=== PATIENT | male | born 1970 | race Caucasian/White ===

== ENCOUNTER 2016-11-15 12:28 | Emergency (ER) | payer OTHER ==
[2016-11-15 12:34] VITALS: BP 155/102; BMI 35.9
--- NOTE | 2016-11-15 13:24 | DR.GENAD ---
HPI - PCP Primary Care Physician: NFD - Complaint/Symptoms Chief Complaint Doctors Comments: Patient admits to nausea w/o vomiting or diarrhea. Crampy stomach pain. History of H pylori two months ago, took medication. Chief Complaint:: PT. STATED THAT HE HAS A STOMACH BUG SINCE MONDAY MORNING. N/D - Source History Provided: Patient - Mode of Arrival Mode of Arrival: Ambulatory - Timing Onset of Chief Complaint: 11/13/16 PMH - PMH Past Medical History: Yes Past Medical History: COPD, Hypertension, [place] Past Surgical History: Yes Surgical History: Ortho Surgery - Family History History of Family Medical Conditions: No - Social History Does patient currently use any type of tobacco product: Yes Have you used tobacco products in the last 12 months: Yes Type of Tobacco Use: Cigarettes Does any household member use tobacco: No Alcohol Use: None Do you use any recreational Drugs:: No Lives With: Family Lives Where: Home - infectious screening In the last 2 months have you had wt loss of >10#?: NO Have you had fever, night sweats or hemotysis?: No Have you traveled outside the country in the last 6 months?: No Isolation: Standard ROS - Review of Systems Constitutional: No Symptoms Reported Eyes: No Symptoms Reported ENTM: No Symptoms Reported Respiratoy: No Symptoms Reported Cardiovascular: No Symptoms Reported Gastrointestinal/Abdominal: Nausea Genitourinary: No Symptoms Reported Neurological: No Symptoms Reported Musculoskeletal: No Symptoms Reported Integumentary: No Symptoms Reported Hematologic/Lymphatic: No Symptoms Reported Endocrine: No Symptoms Reported Psychiatric: No Symptoms Reported All Other Systems: Reviewed and Negative PE - Vital Signs Vitals: Temperature 98.3 F Pulse Rate 79 Respiratory Rate 18 Blood Pressure 155/102 O2 Sat by Pulse Oximetry 98 - General Limitations: No Limitations General Appearance: Alert, In No Apparent Distress - Head Head Exam: Normal Inspection, Atraumatic - Eyes Eye exam: Normal Appearance, PERRL, EOMI - ENT ENT Exam: Normal Exam External Ear Exam: Normal External Inspection TM/Canal Exam: Bilateral Normal Nose Exam: Normal Nose Exam Mouth Exam: Normal Inspection - Neck Neck Exam: Normal Inspection - Chest Chest Inspection: Normal Inspection - Respiratory Respiratory Exam: Normal Lung Sounds Bilat Respiratory Exam: Bilateral Clear to Auscultation - Cardiovascular Cardiovascular Exam: Regular Rate - Abdominal Exam Abdominal Exam: Normal Inspection, Hyperactive Bowel Sounds Abdominal Tenderness: Mild - Extremities Extremities Exam: Normal Inspection, Full ROM - Back Back Exam: Normal Inspection, Full ROM - Neurologic Neurological Exam: Alert, Oriented X3, CN II-XII Intact - Psychiatric Psychiatric Exam: Normal Affect - Skin Skin Exam: Warm, Dry, Intact Course - Reevaluation 1st: Improved ROR - Labs Reviewed Result Diagrams: 11/15/16 14:02 11/15/16 14:02 Laboratory: WBC 7.2 X10^3/uL (3.6-10.0) 11/15/16 14:02 RBC 4.75 X10^6/uL (4.7-6.0) 11/15/16 14:02 Hgb 14.6 g/dL (13.5-18.0) 11/15/16 14:02 Hct 43.1 % (42.0-54.0) 11/15/16 14:02 MCV 90.8 fL (80.0-100.0) 11/15/16 14:02 MCH 30.8 pg (27.0-34.0) 11/15/16 14:02 MCHC 33.9 g/dL (33.0-35.0) 11/15/16 14:02 RDW 12.9 % (11.6-16.5) 11/15/16 14:02 Plt Count 249 X10^3/uL (150.0-450.0) 11/15/16 14:02 MPV 8.0 fL (7.4-11.0) 11/15/16 14:02 Neut % 68.8 % (42.0-75.0) 11/15/16 14:02 Lymph % 20.4 % (21.0-51.0) L 11/15/16 14:02 [place] % 8.5 % (0.0-13.0) 11/15/16 14:02 Eos % 1.6 % (0.9-2.9) 11/15/16 14:02 Baso % 0.7 % (0.2-1.0) 11/15/16 14:02 Neut # 5.0 x10^3/uL (2.2-4.8) H 11/15/16 14:02 Lymph # 1.5 X10^3/uL (1.3-2.9) 11/15/16 14:02 [place] # 0.6 x10^3/uL (0.3-0.8) 11/15/16 14:02 Eos # 0.1 x10^3/uL (0.0-0.2) 11/15/16 14:02 Baso # 0.1 X10^3/uL (0.0-0.1) 11/15/16 14:02 Absolute Nucleated RBC 0.1 /100WBC 11/15/16 14:02 Sodium 139 mmol/L (136-145) 11/15/16 14:02 Corrected Sodium TNP 11/15/16 14:02 Potassium 4.5 mmol/L (3.5-5.1) 11/15/16 14:02 Chloride 102 mmol/L (98-107) 11/15/16 14:02 Carbon Dioxide 28.3 mmol/L (21-32) 11/15/16 14:02 BUN 15 mg/dL (7-18) 11/15/16 14:02 Creatinine 1.16 mg/dL (0.70-1.30) 11/15/16 14:02 Est GFR (MDRD) Af Amer > 60 (>60) 11/15/16 14:02 Est GFR (MDRD) Non-Af > 60 (>60) 11/15/16 14:02 Glucose 89 mg/dL (65-99) 11/15/16 14:02 Calcium 8.7 mg/dL (8.5-10.1) 11/15/16 14:02 Corrected Calcium TNP 11/15/16 14:02 Total Bilirubin 0.40 mg/dL (0.2-1.0) 11/15/16 14:02 AST 21 Units/L (15-37) 11/15/16 14:02 ALT 32 Units/L (12-78) 11/15/16 14:02 Alkaline Phosphatase 71 Units/L (46-116) 11/15/16 14:02 Total Protein 7.9 g/dL (6.4-8.2) 11/15/16 14:02 Albumin 4.0 g/dL (3.4-5.0) 11/15/16 14:02 Globulin 3.9 g/dL (2.5-4.5) 11/15/16 14:02 Albumin/Globulin Ratio 1.0 Ratio (1.1-2.1) L 11/15/16 14:02 Amylase 67 Units/L (25-115) 11/15/16 14:02 Lipase 170 Units/L (73-393) 11/15/16 14:02 Specimen Type Clean catch urine 11/15/16 13:26 Urine Color Yellow (YELLOW) 11/15/16 13:26 Urine Appearance Clear (CLEAR) 11/15/16 13:26 Urine pH 6.0 (5.0 - 8.0) 11/15/16 13:26 Ur Specific [place] 1.010 (1.000-1.030) 11/15/16 13:26 Urine Protein Negative (NEGATIVE) 11/15/16 13:26 Urine Glucose (UA) Negative (NEGATIVE) 11/15/16 13:26 Urine Ketones Negative (NEGATIVE) 11/15/16 13:26 Urine Occult Blood Negative (NEGATIVE) 11/15/16 13:26 Urine Nitrite Negative (NEGATIVE) 11/15/16 13:26 Urine Bilirubin Negative (NEGATIVE) 11/15/16 13:26 Urine Urobilinogen 1+ (NORMAL) 11/15/16 13:26 Ur Leukocyte Esterase 1+ (NEGATIVE) 11/15/16 13:26 Urine RBC 0-3 /HPF (NEGATIVE) 11/15/16 13:26 Urine WBC 0-3 /HPF (NEGATIVE) 11/15/16 13:26 Ur Squamous Epith Cells Rare /HPF (NEGATIVE) 11/15/16 13:26 Urine Bacteria Negative /HPF (NEGATIVE) 11/15/16 13:26 Ur Culture Indicated? No/not indicated 11/15/16 13:26 - Diagnosis Discharge Problem: Nausea Abdominal pain Qualifiers: Abdominal location: generalized Qualified Code(s): R10.84 - Generalized abdominal pain - Discharge Plan Condition: Stable - Follow ups/Referrals Follow ups/Referrals: NFD,None [Primary Care Provider] - 3 days - Instructions
[2016-11-15] MEDS ORDERED: ZOFRAN TAB 4 MG PO PRN (13:28)
[2016-11-15] MEDS ORDERED: BENTYL I.M. INJ 10 MG IM ONE ×2 (13:29→13:38)
[2016-11-15] MEDS ORDERED: ZOFRAN TAB 4 MG ONE (13:37)
[2016-11-15 13:43] LABS: BILIRUBIN,URINE NEGATIVE (NEGATIVE); BLOOD/HEMOGLOBIN,URINE NEGATIVE (NEGATIVE); GLUCOSE, URINE NEGATIVE (NEGATIVE); KETONES,URINE NEGATIVE (NEGATIVE); LEUKOCYTE ESTERASE ,URINE 1+ (NEGATIVE); NITRITES,URINE NEGATIVE (NEGATIVE); PROTEIN,URINE NEGATIVE (NEGATIVE); UROBILINOGEN,URINE 1+ (NORMAL)
[2016-11-15 14:01] LABS: APPEARANCE,URINE CLEAR (CLEAR); BACTERIA,URINE NEGATIVE /HPF (NEGATIVE); COLOR,URINE YELLOW (YELLOW); RBC,URINE 0-3 /HPF (NEGATIVE); SQUAMOUS EPITHELIAL CELL,UR RARE /HPF (NEGATIVE)
[2016-11-15 14:14] LABS: BASOPHILS # (AUTO) 0.1 X10^3/uL (0.0-0.1); BASOPHILS % (AUTO) 0.7 % (0.2-1.0); EOSINOPHILS # (AUTO) 0.1 x10^3/uL (0.0-0.2); EOSINOPHILS % (AUTO) 1.6 % (0.9-2.9); HEMATOCRIT 43.1 % (42.0-54.0); HEMOGLOBIN 14.6 g/dL (13.5-18.0); LYMPHOCYTES # (AUTO) 1.5 X10^3/uL (1.3-2.9); LYMPHOCYTES % (AUTO) 20.4 % (21.0-51.0); MEAN CORPUSCULAR HEMOGLOBIN 30.8 pg (27.0-34.0); MEAN CORPUSCULAR HGB CONC 33.9 g/dL (33.0-35.0); MEAN CORPUSCULAR VOLUME 90.8 fL (80.0-100.0); MONOCYTES # (AUTO) 0.6 x10^3/uL (0.3-0.8); MONOCYTES % (AUTO) 8.5 % (0.0-13.0); NEUTROPHILS % (AUTO) 68.8 % (42.0-75.0); PLATELET COUNT 249 X10^3/uL (150.0-450.0); RED BLOOD COUNT 4.75 X10^6/uL (4.7-6.0); RED CELL DISTRIBUTION WIDTH 12.9 % (11.6-16.5); WHITE BLOOD COUNT 7.2 X10^3/uL (3.6-10.0)
[2016-11-15 14:26] LABS: ALANINE AMINOTRANSFERASE 32 Units/L (12-78); ALKALINE PHOSPHATASE 71 Units/L (46-116); AMYLASE 67 Units/L (25-115); ASPARTATE AMINO TRANSFERASE 21 Units/L (15-37); BLOOD UREA NITROGEN 15 mg/dL (7-18); CALCIUM 8.7 mg/dL (8.5-10.1); CARBON DIOXIDE 28.3 mmol/L (21-32); CHLORIDE 102 mmol/L (98-107); CREATININE 1.16 mg/dL (0.70-1.30); GLUCOSE 89 mg/dL (65-99); LIPASE 170 Units/L (73-393); SODIUM 139 mmol/L (136-145); TOTAL PROTEIN 7.9 g/dL (6.4-8.2); eGFR BLACK RACES > 60 (>60); eGFR NON BLACK RACES > 60 (>60)
--- NOTE | 2016-11-15 15:38 | RAD ---
HISTORY: Abdominal Pain Study: Frontal view of the chest, flat and upright views of the abdomen Comparison: None. Findings: Cardiomediastinal silhouette is normal in size. No focal consolidations, pleural effusions or pneumo thorax. Osseous structures are without acute abnormality. Flat and upright views of the abdomen demonstrates a normal bowel gas pattern. No free air. No abno rmal calcifications or abnormal soft tissue shadows. No acute bony abnormalities. IMPRESSION: 1. No acute cardiopulmonary disease. 2. No evidence for acute abdominal pathology. Reported By:
== END 2016-11-15 15:42 | disposition home or self-care (01) ==
LOC: ER 12:41
DX: R11.0 Nausea (principal); R10.84 Generalized abdominal pain
CPT/HCPCS: 36415; 74022; 80053; 81001; 82150; 83690; 85025; 96372; 99282; S0181; J0500

== ENCOUNTER 2017-01-10 20:20 | Emergency (ER) | payer OTHER ==
[2017-01-10 20:40] VITALS: BP 148/96; BMI 35.9
--- NOTE | 2017-01-10 20:41 | DR.GENAD ---
HPI - PCP Primary Care Physician: nfd - Complaint/Symptoms Chief Complaint:: pt states" i hit my head on and i fell and hit my head on the concrete floor and i'm real dizzy headed" - Nurses notes reviewed Nurses Notes Review: Yes - Source History Provided: Patient - Mode of Arrival Mode of Arrival: Ambulatory - Timing Onset of Chief Complaint: 01/10/17 Came on: Suddenly - Duration Duration: Constant Duration: Hours - Location Location: head - Severity Severity: Moderate - Associated Signs and Symptoms Associated Signs and Symptoms: none PMH - PMH Past Medical History: Yes Past Medical History: COPD, Hypertension, [place] Past Surgical History: Yes Surgical History: Ortho Surgery - Family History History of Family Medical Conditions: Yes Family Medical History: Cancer, [place], Coronary Artery Disease - Social History Type of Tobacco Use: Cigarettes Does any household member use tobacco: Yes Alcohol Use: Occasionally Do you use any recreational Drugs:: No Lives With: Family Lives Where: Home - infectious screening In the last 2 months have you had wt loss of >10#?: NO Have you had fever, night sweats or hemotysis?: No Have you traveled outside the country in the last 6 months?: No Isolation: Standard ROS - Review of Systems Eyes: No Symptoms Reported ENTM: No Symptoms Reported Respiratoy: No Symptoms Reported Cardiovascular: No Symptoms Reported Gastrointestinal/Abdominal: No Symptoms Reported Genitourinary: No Symptoms Reported Neurological: Dizziness Musculoskeletal: No Symptoms Reported Integumentary: Wound (scalp 1cm cut) Hematologic/Lymphatic: No Symptoms Reported Endocrine: No Symptoms Reported Psychiatric: No Symptoms Reported All Other Systems: Reviewed and Negative PE - Vital Signs Vitals: Temperature 98.4 F Pulse Rate 80 Respiratory Rate 18 Blood Pressure 148/96 O2 Sat by Pulse Oximetry 98 - General Limitations: No Limitations General Appearance: Alert, In No Apparent Distress - Head Head Exam: Normal Inspection - Eyes Eye exam: Normal Appearance, EOMI. negative: Scleral Icterus, Conjunctival Injection - ENT ENT Exam: Normal Exam, Normal Oropharynx External Ear Exam: Normal External Inspection - Neck Neck Exam: Normal Inspection, Full ROM, Trachea Midline - Chest Chest Inspection: Normal Inspection - Respiratory Respiratory Exam: negative: Accessory Muscle Use, Respiratory Distress - Cardiovascular Cardiovascular Exam: Regular Rate - Abdominal Exam Abdominal Exam: Normal Inspection - Extremities Extremities Exam: Normal Inspection - Back Back Exam: Normal Inspection - Neurologic Neurological Exam: Alert, Oriented X3, CN II-XII Intact - Psychiatric Psychiatric Exam: Flat Affect - Skin Skin Exam: Intact, Normal Color ROR - XRAY XRAY Interpreted by: Radiologist XRAY Findings: CT Head: no acute disease - Diagnosis Discharge Problem: Concussion Qualifiers: Encounter type: initial encounter Loss of consciousness presence/duration: without LOC Qualified Code(s): S06.0X0A - Concussion without loss of consciousness, initial encounter - Discharge Plan Condition: Stable Prescriptions: Ibuprofen [Motrin Tab 800 mg] 800 mg PO Q8H PRN #30 tab PRN Reason: Pain/Inflammation - Follow ups/Referrals Follow ups/Referrals: NFD,None [Primary Care Provider] - 3 days - Instructions
--- NOTE | 2017-01-10 21:21 | CT ---
HISTORY: Head trauma, hit back of head, headache, dizziness Study: CT brain without contrast Comparison: None Technique: Multiple axial images of the brain were obtained from the skull base to the vertex without administr ation of IV contrast. Dose reduction techniques including Automated Exposure Control (AEC) and adju stment of mA and kV were utilized. Findings: The brain parenchyma is within normal limits for patient's age. No evidence of acute hemorrhage, mi dline shift, mass effect or abnormal extra-axial fluid collection. There is asymmetric prominence o f the right lateral ventricle, likely congenital in nature. The soft tissues and osseous structures are unremarkable. The visualized paranasal sinuses are clear. IMPRESSION: 1.No acute intracranial abnormality. Reported By:
== END 2017-01-10 21:38 | disposition home or self-care (01) ==
LOC: ER 20:27
DX: S06.0X0A Concussion without loss of consciousness, initial encounter (principal); R51 Headache; W01.198A Fall on same level from slipping, tripping and stumbling with subsequent striking against other object, initial encounter; Y92.9 Unspecified place or not applicable
CPT/HCPCS: 70450; 99282; A4222

== ENCOUNTER 2017-01-17 13:52 | Emergency (ER) | payer OTHER ==
[2017-01-17 13:58] VITALS: BP 163/110; BMI 35.6
--- NOTE | 2017-01-17 14:34 | DR.GENAD ---
HPI - PCP Primary Care Physician: none - HPI Comment HPI Comment: PATIENT HAD HEAD TRAUMA ONE WEEK ADO AND HAVE HAD INCREASING DIZZINESS SINCE. NO NEW INJURY. DENIES CHEST PAIN BUT IS HAVING NEAR SYNCOPAL EPISODES. NO SINUS CONGESTIONS OR URI SYMTOMS. - Complaint/Symptoms Chief Complaint Doctors Comments: DIZZINESS TIMES ONE WEEK. Chief Complaint:: " hit my head a week ago have been very dizzy since" came up here and had a CT and it was neg but the dizzines is geting worse - Nurses notes reviewed Nurses Notes Review: Yes - Source History Provided: Patient - Mode of Arrival Mode of Arrival: Ambulatory - Timing Onset of Chief Complaint: 01/10/17 Came on: Gradually - Duration Duration: Constant Duration: Days - Severity Severity: Moderate PMH - PMH Past Medical History: Yes Past Medical History: COPD, Hypertension, [place] Past Surgical History: Yes Surgical History: Ortho Surgery - Family History History of Family Medical Conditions: Yes Family Medical History: Cancer, [place], Coronary Artery Disease - Social History Does patient currently use any type of tobacco product: Yes Have you used tobacco products in the last 12 months: Yes Type of Tobacco Use: Cigarettes How many years tobacco product used: 30 Does any household member use tobacco: No Alcohol Use: Occasionally Do you use any recreational Drugs:: Yes (pot) Lives With: Spouse Lives Where: Home - infectious screening In the last 2 months have you had wt loss of >10#?: NO Have you had fever, night sweats or hemotysis?: No Have you traveled outside the country in the last 6 months?: No Isolation: Standard ROS - Review of Systems Constitutional: Weakness, Fatigue. negative: Chills, Diaphoresis, Fever, Loss of Appetite Eyes: No Symptoms Reported. negative: Eye Pain, Blurred Vision, Discharge, Photophobia ENTM: No Symptoms Reported. negative: Ear Pain, Nose Discharge, Nose Congestion , Throat Pain Respiratoy: No Symptoms Reported. negative: Productive Cough, Non-Productive Cough, Short of Breath, Wheezing, Hemoptysis Cardiovascular: No Symptoms Reported. negative: Chest Pain Gastrointestinal/Abdominal: No Symptoms Reported, Nausea. negative: Abdominal Pain, Diarrhea, Vomiting Genitourinary: No Symptoms Reported. negative: Dysuria, Frequency, Hematuria Neurological: Headache, Dizziness. negative: Weakness Musculoskeletal: No Symptoms Reported Integumentary: No Symptoms Reported Hematologic/Lymphatic: No Symptoms Reported Endocrine: No Symptoms Reported All Other Systems: Reviewed and Negative PE - Vital Signs Vitals: Temperature 98.5 F Pulse Rate 71 Respiratory Rate 20 Blood Pressure 163/110 O2 Sat by Pulse Oximetry 99 - General Limitations: No Limitations General Appearance: Alert - Head Head Exam: Normal Inspection - Eyes Eye exam: Normal Appearance - ENT ENT Exam: Normal External Ear Exam External Ear Exam: Normal External Inspection TM/Canal Exam: Bilateral Normal Nose Exam: Normal Nose Exam Mouth Exam: Normal Inspection Throat Exam: Normal Inspection - Neck Neck Exam: Trachea Midline - Chest Chest Inspection: Symmetric Chest Wall Rise - Respiratory Respiratory Exam: Normal Lung Sounds Bilat Respiratory Exam: Bilateral Clear to Auscultation - Cardiovascular Cardiovascular Exam: Regular Rate, Normal Rhythm, Normal Heart Sounds - Abdominal Exam Abdominal Exam: Normal Bowel Sounds, Soft. negative: Tenderness - Extremities Extremities Exam: Normal Inspection - Back Back Exam: Normal Inspection - Neurologic Neurological Exam: Alert, Oriented X3 - Psychiatric Psychiatric Exam: Normal Affect, Normal Mood - Skin Skin Exam: Normal Color MDM - Differential Diagnosis Differential Diagnosis: DIZZINESS, [place], SINUSITIS, CVA, CEREBRAL BLEED, LABYRINTHITIS Course - Treatment Treatment: SEE ORDERS. - Education/Counseling Education/Counseling: Patient, Education Educated On: Diagnosis, Needs for Follow Up ROR - Labs Reviewed Laboratory Results Reviewed?: Yes Result Diagrams: 01/17/17 14:38 01/17/17 14:38 Laboratory: WBC 6.6 X10^3/uL (3.6-10.0) 01/17/17 14:38 RBC 4.88 X10^6/uL (4.7-6.0) 01/17/17 14:38 Hgb 15.1 g/dL (13.5-18.0) 01/17/17 14:38 Hct 44.7 % (42.0-54.0) 01/17/17 14:38 MCV 91.7 fL (80.0-100.0) 01/17/17 14:38 MCH 31.0 pg (27.0-34.0) 01/17/17 14:38 MCHC 33.8 g/dL (33.0-35.0) 01/17/17 14:38 RDW 13.7 % (11.6-16.5) 01/17/17 14:38 Plt Count 225 X10^3/uL (150.0-450.0) 01/17/17 14:38 MPV 8.1 fL (7.4-11.0) 01/17/17 14:38 Neut % 64.8 % (42.0-75.0) 01/17/17 14:38 Lymph % 23.1 % (21.0-51.0) 01/17/17 14:38 [place] % 8.7 % (0.0-13.0) 01/17/17 14:38 Eos % 2.6 % (0.9-2.9) 01/17/17 14:38 Baso % 0.8 % (0.2-1.0) 01/17/17 14:38 Neut # 4.3 x10^3/uL (2.2-4.8) 01/17/17 14:38 Lymph # 1.5 X10^3/uL (1.3-2.9) 01/17/17 14:38 [place] # 0.6 x10^3/uL (0.3-0.8) 01/17/17 14:38 Eos # 0.2 x10^3/uL (0.0-0.2) 01/17/17 14:38 Baso # 0.1 X10^3/uL (0.0-0.1) 01/17/17 14:38 Absolute Nucleated RBC 0.1 /100WBC 01/17/17 14:38 Sodium 140 mmol/L (136-145) 01/17/17 14:38 Corrected Sodium TNP 01/17/17 14:38 Potassium 4.3 mmol/L (3.5-5.1) 01/17/17 14:38 Chloride 105 mmol/L (98-107) 01/17/17 14:38 Carbon Dioxide 29.0 mmol/L (21-32) 01/17/17 14:38 BUN 13 mg/dL (7-18) 01/17/17 14:38 Creatinine 1.12 mg/dL (0.70-1.30) 01/17/17 14:38 Est GFR (MDRD) Af Amer > 60 (>60) 01/17/17 14:38 Est GFR (MDRD) Non-Af > 60 (>60) 01/17/17 14:38 Glucose 90 mg/dL (65-99) 01/17/17 14:38 Calcium 8.7 mg/dL (8.5-10.1) 01/17/17 14:38 Corrected Calcium TNP 01/17/17 14:38 Total Bilirubin 0.50 mg/dL (0.2-1.0) 01/17/17 14:38 AST 16 Units/L (15-37) 01/17/17 14:38 ALT 26 Units/L (12-78) 01/17/17 14:38 Alkaline Phosphatase 77 Units/L (46-116) 01/17/17 14:38 Creatine Kinase 60 Units/L (39-308) 01/17/17 14:38 CK-MB (CK-2) < 1.0 ng/mL (0-4.0) 01/17/17 14:38 CK/CKMB % Calc 1.7 % (<4) 01/17/17 14:38 Troponin I < 0.02 ng/mL (0-1.5) 01/17/17 14:38 Total Protein 7.1 g/dL (6.4-8.2) 01/17/17 14:38 Albumin 3.8 g/dL (3.4-5.0) 01/17/17 14:38 Globulin 3.3 g/dL (2.5-4.5) 01/17/17 14:38 Albumin/Globulin Ratio 1.2 Ratio (1.1-2.1) 01/17/17 14:38 - XRAY XRAY Interpreted by: Radiologist XRAY Findings: REPORT DISCUSS WITH PATIENT. - EKG [place]: Normal (EKG NOTED.) - Diagnosis Discharge Problem: Dizziness - Discharge Plan Disposition: 01 HOME, SELF-CARE Condition: Stable - Follow ups/Referrals Follow ups/Referrals: NFD,None [Primary Care Provider] - 3 days REESE RASCON [STAFF PHYSICIAN] - 3 days - Instructions Instructions: Dizziness, [id number] Additional Instructions: RETURN TO ED IF WORSE. DIZZINESS PRECAUTION
[2017-01-17 14:54] LABS: BASOPHILS # (AUTO) 0.1 X10^3/uL (0.0-0.1); BASOPHILS % (AUTO) 0.8 % (0.2-1.0); EOSINOPHILS # (AUTO) 0.2 x10^3/uL (0.0-0.2); EOSINOPHILS % (AUTO) 2.6 % (0.9-2.9); HEMATOCRIT 44.7 % (42.0-54.0); HEMOGLOBIN 15.1 g/dL (13.5-18.0); LYMPHOCYTES # (AUTO) 1.5 X10^3/uL (1.3-2.9); LYMPHOCYTES % (AUTO) 23.1 % (21.0-51.0); MEAN CORPUSCULAR HGB CONC 33.8 g/dL (33.0-35.0); MEAN CORPUSCULAR VOLUME 91.7 fL (80.0-100.0); MEAN PLATELET VOLUME 8.1 fL (7.4-11.0); MONOCYTES # (AUTO) 0.6 x10^3/uL (0.3-0.8); MONOCYTES % (AUTO) 8.7 % (0.0-13.0); NEUTROPHILS # (AUTO) 4.3 x10^3/uL (2.2-4.8); NEUTROPHILS % (AUTO) 64.8 % (42.0-75.0); PLATELET COUNT 225 X10^3/uL (150.0-450.0); RED BLOOD COUNT 4.88 X10^6/uL (4.7-6.0); RED CELL DISTRIBUTION WIDTH 13.7 % (11.6-16.5); WHITE BLOOD COUNT 6.6 X10^3/uL (3.6-10.0)
--- NOTE | 2017-01-17 15:10 | CT ---
History: Fall 1 week ago and has dizziness and nausea Study: Multi materials planner CT head without contrast. Comparison: January 10, 2017 Findings: There is no interval change. There is a prominent cisterna magna, and normal variant. Ther e is no intracranial hemorrhage or mass or edema or subdural collection of fluid. The mastoid sinuse s and the partially visualized paranasal sinuses are clear. The calvarium is intact. Impression: No interval change and no acute disease Reported By:
[2017-01-17 15:12] LABS: ALANINE AMINOTRANSFERASE 26 Units/L (12-78); ALBUMIN 3.8 g/dL (3.4-5.0); ALKALINE PHOSPHATASE 77 Units/L (46-116); ASPARTATE AMINO TRANSFERASE 16 Units/L (15-37); BLOOD UREA NITROGEN 13 mg/dL (7-18); CALCIUM 8.7 mg/dL (8.5-10.1); CHLORIDE 105 mmol/L (98-107); CKMB % 1.7 % (<4); CREATINE KINASE 60 Units/L (39-308); CREATINE KINASE MB < 1.0 ng/mL (0-4.0); CREATININE 1.12 mg/dL (0.70-1.30); GLUCOSE 90 mg/dL (65-99); SODIUM 140 mmol/L (136-145); TOTAL PROTEIN 7.1 g/dL (6.4-8.2); TROPONIN I < 0.02 ng/mL (0-1.5); eGFR BLACK RACES > 60 (>60); eGFR NON BLACK RACES > 60 (>60)
== END 2017-01-17 16:00 | disposition home or self-care (01) ==
LOC: ER 14:04
DX: R42 Dizziness and giddiness (principal)
CPT/HCPCS: 36415; 70450; 80053; 82550; 82553; 84484; 85025; 93005; 93010; 99282; 99283

== ENCOUNTER 2017-02-17 17:11 | Emergency (ER) | payer OTHER ==
[2017-02-17 17:17] VITALS: BP 125/83; BMI 35.9
--- NOTE | 2017-02-17 17:27 | DR.GENAD ---
HPI - PCP Primary Care Physician: [facility] - HPI Comment HPI Comment: PATIENT DENIES SUICIDAL OR HOMICIDAL IDEAS. HE DENIES HEAD ACHE, CHEST PAIN OR ABDOMINAL PAIN. NO DYSURIA OR FEVER. - Complaint/Symptoms Chief Complaint Doctors Comments: PATIENT HEARS MUMBLES AND SEE SPORTS FOR FEW WEEKS. STARTING TO MAKE HIM FEEL ANXIOUS. Chief Complaint:: patient stated he has been hearing voices for a couple of weeks. he stated he dont want tohurt himself or anyone else he thinks he is having a bipolar moment. patient takes seraquil and effexor and stated he has not missed and doses. - Nurses notes reviewed Nurses Notes Review: Yes - Source History Provided: Patient - Mode of Arrival Mode of Arrival: Ambulatory - Timing Onset of Chief Complaint: 02/03/17 Came on: Suddenly - Duration Duration: Constant Duration: Weeks - Severity Severity: Moderate PMH - PMH Past Medical History: Yes Past Medical History: COPD, Hypertension, [place] Past Surgical History: Yes Surgical History: Ortho Surgery - Family History History of Family Medical Conditions: Yes Family Medical History: Cancer, [place], Coronary Artery Disease - Social History Does patient currently use any type of tobacco product: Yes Have you used tobacco products in the last 12 months: Yes Type of Tobacco Use: Cigarettes How many years tobacco product used: 30 Does any household member use tobacco: Yes Alcohol Use: Occasionally Do you use any recreational Drugs:: Yes (pot) Lives With: Family Lives Where: Home - infectious screening In the last 2 months have you had wt loss of >10#?: NO Have you had fever, night sweats or hemotysis?: No Have you traveled outside the country in the last 6 months?: No Isolation: Standard ROS - Review of Systems Constitutional: No Symptoms Reported Eyes: No Symptoms Reported. negative: Eye Pain, Discharge ENTM: negative: Ear Pain, Ear Discharge, Pulling on Ears, Hearing Loss, Nose Discharge, Nose Congestion, Throat Pain, Ear Foreign Body Respiratoy: negative: Productive Cough, Non-Productive Cough, Short of Breath, Wheezing, Hemoptysis Cardiovascular: negative: Chest Pain, Edema, Palpitations Gastrointestinal/Abdominal: No Symptoms Reported. negative: Abdominal Pain, Constipation, Diarrhea, Nausea Genitourinary: No Symptoms Reported. negative: Dysuria, Frequency, Hematuria Neurological: No Symptoms Reported Musculoskeletal: No Symptoms Reported Integumentary: No Symptoms Reported Hematologic/Lymphatic: No Symptoms Reported Endocrine: No Symptoms Reported Psychiatric: Hallucinations All Other Systems: Reviewed and Negative PE - Vital Signs Vitals: Temperature 98.6 F Pulse Rate 90 Respiratory Rate 16 Blood Pressure 125/83 O2 Sat by Pulse Oximetry 96 - General Limitations: No Limitations General Appearance: Alert - Head Head Exam: Normal Inspection - Eyes Eye exam: Normal Appearance - ENT ENT Exam: Normal External Ear Exam External Ear Exam: Normal External Inspection TM/Canal Exam: Bilateral Normal Nose Exam: Normal Nose Exam Mouth Exam: Normal Inspection Throat Exam: Normal Inspection - Neck Neck Exam: Trachea Midline - Chest Chest Inspection: Symmetric Chest Wall Rise - Respiratory Respiratory Exam: Normal Lung Sounds Bilat Respiratory Exam: Bilateral Clear to Auscultation - Cardiovascular Cardiovascular Exam: Regular Rate, Normal Rhythm, Normal Heart Sounds - Abdominal Exam Abdominal Exam: Normal Bowel Sounds, Soft. negative: Tenderness - Extremities Extremities Exam: Normal Inspection - Back Back Exam: Normal Inspection - Neurologic Neurological Exam: Alert, Oriented X3 - Psychiatric Psychiatric Exam: Normal Affect, Normal Mood - Skin Skin Exam: Normal Color MDM - Differential Diagnosis Differential Diagnosis: HALLUCINATIONS, DEPRESSION Course - Treatment Treatment: SEE ORDERS. MENDICALLY CLEAR. PATIENT LEFT BEFORE EVALUATION WAS COMPLETED. - Consultation Consultation Comments: MENTAL HEALTH CONSULT. ROR - Labs Reviewed Laboratory Results Reviewed?: Yes Result Diagrams: 02/17/17 17:30 02/17/17 17:30 Laboratory: WBC 8.3 X10^3/uL (3.6-10.0) 02/17/17 17:30 RBC 4.75 X10^6/uL (4.7-6.0) 02/17/17 17:30 Hgb 15.4 g/dL (13.5-18.0) 02/17/17 17:30 Hct 44.2 % (42.0-54.0) 02/17/17 17:30 MCV 93.0 fL (80.0-100.0) 02/17/17 17:30 MCH 32.3 pg (27.0-34.0) 02/17/17 17:30 MCHC 34.8 g/dL (33.0-35.0) 02/17/17 17:30 RDW 13.8 % (11.6-16.5) 02/17/17 17:30 Plt Count 238 X10^3/uL (150.0-450.0) 02/17/17 17:30 MPV 8.1 fL (7.4-11.0) 02/17/17 17: Neut % 52.0 % (42.0-75.0) 02/17/17 17: Lymph % 36.0 % (21.0-51.0) 02/17/17 17:30 [place] % 6.1 % (0.0-13.0) 02/17/17 17:30 Eos % 5.2 % (0.9-2.9) H 02/17/17 17:30 Baso % 0.7 % (0.2-1.0) 02/17/17 17:30 Neut # 4.3 x10^3/uL (2.2-4.8) 02/17/17: Lymph # 3.0 X10^3/uL (1.3-2.9) H 02/17/17 17:30 [place] # 0.5 x10^3/uL (0.3-0.8) 02/17/17 17:30 Eos # 0.4 x10^3/uL (0.0-0.2) H 02/17/17 17:30 Baso # 0.1 X10^3/uL (0.0-0.1) 02/17/17 17:30 Absolute Nucleated RBC 0.0 /100WBC 02/17/17 17:30 Sodium 141 mmol/L (136-145) 02/17/17 17:30 Corrected Sodium TNP 02/17/17 17:30 Potassium 4.1 mmol/L (3.5-5.1) 02/17/17 17:30 Chloride 104 mmol/L (98-107) 02/17/17 17:30 Carbon Dioxide 28.3 mmol/L (21-32) 02/17/17 17:30 BUN 12 mg/dL (7-18) 02/17/17 17:30 Creatinine 1.23 mg/dL (0.70-1.30) 02/17/17 17:30 Est GFR (MDRD) Af Amer > 60 (>60) 02/17/17 17:30 Est GFR (MDRD) Non-Af > 60 (>60) 02/17/17 17:30 Glucose 84 mg/dL (65-99) 02/17/17 17:30 Calcium 8.4 mg/dL (8.5-10.1) L 02/17/17 17:30 Corrected Calcium TNP 02/17/17 17:30 Total Bilirubin 0.20 mg/dL (0.2-1.0) 02/17/17 17:30 AST 17 Units/L (15-37) 02/17/17 17:30 ALT 25 Units/L (12-78) 02/17/17 17:30 Alkaline Phosphatase 73 Units/L (46-116) 02/17/17 17:30 Total Protein 7.5 g/dL (6.4-8.2) 02/17/17 17:30 Albumin 3.8 g/dL (3.4-5.0) 02/17/17 17: Globulin 3.7 g/dL (2.5-4.5) 02/17/17 17:30 Albumin/Globulin Ratio 1.0 Ratio (1.1-2.1) L 02/17/17 17:30 Specimen Type Clean catch urine 02/17/17 17:33 Urine Color Yellow (YELLOW) 02/17/17 17:33 Urine Appearance Clear (CLEAR) 02/17/17 17:33 Urine pH 6.0 (5.0 - 8.0) 02/17/17 17:33 Ur Specific [place] 1.005 (1.000-1.030) 02/17/17 17:33 Urine Protein Negative (NEGATIVE) 02/17/17 17:33 Urine Glucose (UA) Negative (NEGATIVE) 02/17/17 17:33 Urine Ketones Negative (NEGATIVE) 02/17/17 17: Urine Occult Blood Negative (NEGATIVE) 02/17/17 17:33 Urine Nitrite Negative (NEGATIVE) 02/17/17 17:33 Urine Bilirubin Negative (NEGATIVE) 02/17/17 17:33 Urine Urobilinogen Normal (NORMAL) 02/17/17 17:33 Ur Leukocyte Esterase Negative (NEGATIVE) 02/17/17 17:33 Urine RBC None seen /HPF (NEGATIVE) 02/17/17 17:33 Urine WBC None seen /HPF (NEGATIVE) 02/17/17 17:33 Ur Squamous Epith Cells Rare /HPF (NEGATIVE) 02/17/17 17:33 Urine Bacteria Negative /HPF (NEGATIVE) 02/17/17 17:33 Ur Culture Indicated? No/not indicated 02/17/17 17:33 Salicylates 4.0 mg/dL (2.8-20) 02/17/17 17:30 Urine Opiates Screen Negative (NEG=<300) 02/17/17 17:33 Urine Methadone Screen Negative (NEG=<300) 02/17/17 17:33 Acetaminophen 0.0 ug/mL (10-30) L 02/17/17 17:30 Ur Barbiturates Screen Negative (NEG=<200) 02/17/17 17:33 Ur Phencyclidine Scrn Negative (NEG=<25) 02/17/17 17:33 Ur Amphetamines Screen Negative (NEG=<1000) 02/17/17 17:33 U Benzodiazepines Scrn Negative (NEG=<200) 02/17/17 17:33 Urine Cocaine Screen Negative (NEG=<300) 02/17/17 17:33 U Marijuana (THC) Screen Negative (NEG=<50) 02/17/17 17:33 Ethyl Alcohol mg/dL 242 mg/dL (0-19.9) H 02/17/17 17:30 - Discharge Plan Disposition: 07 AGAINST MEDICAL ADVICE Condition: Good - Follow ups/Referrals Follow ups/Referrals: NFD,None [Primary Care Provider] - 3 days - Instructions
[2017-02-17 17:56] LABS: BILIRUBIN,URINE NEGATIVE (NEGATIVE); BLOOD/HEMOGLOBIN,URINE NEGATIVE (NEGATIVE); GLUCOSE, URINE NEGATIVE (NEGATIVE); KETONES,URINE NEGATIVE (NEGATIVE); LEUKOCYTE ESTERASE ,URINE NEGATIVE (NEGATIVE); NITRITES,URINE NEGATIVE (NEGATIVE); PROTEIN,URINE NEGATIVE (NEGATIVE); UROBILINOGEN,URINE NORMAL (NORMAL)
[2017-02-17 17:57] LABS: BASOPHILS # (AUTO) 0.1 X10^3/uL (0.0-0.1); BASOPHILS % (AUTO) 0.7 % (0.2-1.0); EOSINOPHILS # (AUTO) 0.4 x10^3/uL (0.0-0.2); EOSINOPHILS % (AUTO) 5.2 % (0.9-2.9); HEMATOCRIT 44.2 % (42.0-54.0); HEMOGLOBIN 15.4 g/dL (13.5-18.0); MEAN CORPUSCULAR HEMOGLOBIN 32.3 pg (27.0-34.0); MEAN CORPUSCULAR HGB CONC 34.8 g/dL (33.0-35.0); MEAN PLATELET VOLUME 8.1 fL (7.4-11.0); MONOCYTES # (AUTO) 0.5 x10^3/uL (0.3-0.8); MONOCYTES % (AUTO) 6.1 % (0.0-13.0); NEUTROPHILS # (AUTO) 4.3 x10^3/uL (2.2-4.8); PLATELET COUNT 238 X10^3/uL (150.0-450.0); RED BLOOD COUNT 4.75 X10^6/uL (4.7-6.0); RED CELL DISTRIBUTION WIDTH 13.8 % (11.6-16.5); WHITE BLOOD COUNT 8.3 X10^3/uL (3.6-10.0)
[2017-02-17 18:05] LABS: APPEARANCE,URINE CLEAR (CLEAR); BACTERIA,URINE NEGATIVE /HPF (NEGATIVE); COLOR,URINE YELLOW (YELLOW); RBC,URINE NONE SEEN /HPF (NEGATIVE); SQUAMOUS EPITHELIAL CELL,UR RARE /HPF (NEGATIVE)
[2017-02-17 18:05] LABS: ALANINE AMINOTRANSFERASE 25 Units/L (12-78); ALBUMIN 3.8 g/dL (3.4-5.0); ALKALINE PHOSPHATASE 73 Units/L (46-116); ASPARTATE AMINO TRANSFERASE 17 Units/L (15-37); BLOOD ALCOHOL 242 mg/dL (0-19.9); BLOOD UREA NITROGEN 12 mg/dL (7-18); CALCIUM 8.4 mg/dL (8.5-10.1); CARBON DIOXIDE 28.3 mmol/L (21-32); CHLORIDE 104 mmol/L (98-107); CREATININE 1.23 mg/dL (0.70-1.30); GLUCOSE 84 mg/dL (65-99); SODIUM 141 mmol/L (136-145); TOTAL PROTEIN 7.5 g/dL (6.4-8.2); eGFR BLACK RACES > 60 (>60); eGFR NON BLACK RACES > 60 (>60)
== END 2017-02-17 18:03 | disposition left against medical advice (07) ==
LOC: ER 17:22
DX: R44.0 Auditory hallucinations (principal)
CPT/HCPCS: 36415; 80053; 80307; 80320; 81001; 85025; 93005; 93010; 99283; 99285; G0434; G6038; G6039; G6040

== ENCOUNTER 2017-03-05 00:06 | Emergency (ER) | payer OTHER ==
[2017-03-05 00:20] VITALS: BP 122/67; BMI 37.3
[2017-03-05 00:45] LABS: BASOPHILS # (AUTO) 0.1 X10^3/uL (0.0-0.1); BASOPHILS % (AUTO) 0.8 % (0.2-1.0); EOSINOPHILS # (AUTO) 0.3 x10^3/uL (0.0-0.2); EOSINOPHILS % (AUTO) 2.9 % (0.9-2.9); HEMATOCRIT 44.9 % (42.0-54.0); HEMOGLOBIN 15.6 g/dL (13.5-18.0); LYMPHOCYTES % (AUTO) 32.9 % (21.0-51.0); MEAN CORPUSCULAR HEMOGLOBIN 32.6 pg (27.0-34.0); MEAN CORPUSCULAR HGB CONC 34.8 g/dL (33.0-35.0); MEAN CORPUSCULAR VOLUME 93.7 fL (80.0-100.0); MEAN PLATELET VOLUME 8.3 fL (7.4-11.0); MONOCYTES # (AUTO) 0.6 x10^3/uL (0.3-0.8); NEUTROPHILS # (AUTO) 5.3 x10^3/uL (2.2-4.8); NEUTROPHILS % (AUTO) 57.4 % (42.0-75.0); PLATELET COUNT 243 X10^3/uL (150.0-450.0); RED BLOOD COUNT 4.79 X10^6/uL (4.7-6.0); RED CELL DISTRIBUTION WIDTH 13.6 % (11.6-16.5); WHITE BLOOD COUNT 9.3 X10^3/uL (3.6-10.0)
[2017-03-05 01:00] LABS: SALICYLATE 4.7 mg/dL (2.8-20)
[2017-03-05 01:18] LABS: ALANINE AMINOTRANSFERASE 24 Units/L (12-78); ALBUMIN 4.1 g/dL (3.4-5.0); ALKALINE PHOSPHATASE 80 Units/L (46-116); ASPARTATE AMINO TRANSFERASE 14 Units/L (15-37); BLOOD ALCOHOL 273 mg/dL (0-19.9); BLOOD UREA NITROGEN 16 mg/dL (7-18); CALCIUM 8.1 mg/dL (8.5-10.1); CHLORIDE 106 mmol/L (98-107); GLUCOSE 91 mg/dL (65-99); SODIUM 141 mmol/L (136-145); TOTAL PROTEIN 8.1 g/dL (6.4-8.2); eGFR BLACK RACES > 60 (>60); eGFR NON BLACK RACES > 60 (>60)
--- NOTE | 2017-03-05 01:34 | RAD ---
Chest AP portable Indication: Medical clearance from mental health. Findings: There is no pneumothorax come effusion or consolidation. Heart size is normal. Impression: No acute chest process. No change from the prior November 15, 2016. Reported By:
--- NOTE | 2017-03-05 01:44 | DR.GENAD ---
HPI - PCP Primary Care Physician: CHRISTINASON - Complaint/Symptoms Chief Complaint Doctors Comments: Patient reports that he is not suicidal or homocidal. He says that he does not want to hurt himself or anybody else. He reports that the medication he is taking is not working. He is taking seroquel 800mg daily and Effexor 75mg bid. He sees his therapist every Monday and has been trying to get back on ativan because it helped him mellow out. He states that if he was back on ativan he could concentrate and in addition he david take a little pot and not need much medication. The effexor and seroquel are not working. He sees a therapist on Monday and the psychiatrist on . He had been trying to get the therapist to prescribe the ativan because it gives him more purpose. Again he states that he is non homocidal or suicidal. He called the police to get a rid to the hospital, that is why he told them he was suicidal. He states that he has a adolescent daughter who lives with her grandmother and two boys. He is low keyed he is adement about trying to back on ativan because the seroquel and Effexor do give him the pleasure of thought that the ativan does. Again he reports that he is non homocidal or suicidal. He states that we wanto to goe home will follow up with his therapist at [facility]. on Monday. Chief Complaint:: SUICIDAL THOUGHTS IDEATION. Self Treatment fo Chief Complaint: PATIENT IS OUT OF SEROQUEL SO HE HAS TAKEN DOUBLE THE PRESCRIBED DOSES OF BUSPIRONE A ND VENLAFAXINE - Source History Provided: Patient - Mode of Arrival Mode of Arrival: Ambulatory - Timing Onset of Chief Complaint: 02/26/17 PMH - PMH Past Medical History: Yes Past Medical History: Anxiety, COPD, Depression, Hypertension, [place] Past Surgical History: Yes Surgical History: Ortho Surgery - Family History History of Family Medical Conditions: Yes Family Medical History: Cancer, [place], Coronary Artery Disease - Social History Does patient currently use any type of tobacco product: No Have you used tobacco products in the last 12 months: No Type of Tobacco Use: Cigarettes Does any household member use tobacco: Yes Alcohol Use: Heavy Do you use any recreational Drugs:: No Lives With: Alone Lives Where: Home - infectious screening In the last 2 months have you had wt loss of >10#?: NO Have you had fever, night sweats or hemotysis?: No Have you traveled outside the country in the last 6 months?: No Isolation: Standard ROS - Review of Systems Eyes: No Symptoms Reported ENTM: No Symptoms Reported Respiratoy: No Symptoms Reported Cardiovascular: No Symptoms Reported Gastrointestinal/Abdominal: No Symptoms Reported, Abdominal Pain Neurological: No Symptoms Reported Musculoskeletal: No Symptoms Reported Integumentary: No Symptoms Reported Hematologic/Lymphatic: No Symptoms Reported Endocrine: No Symptoms Reported Psychiatric: No Symptoms Reported All Other Systems: Reviewed and Negative PE - Vital Signs Vitals: Temperature 98 F Pulse Rate 96 Respiratory Rate 16 Blood Pressure 122/67 O2 Sat by Pulse Oximetry 94 - General Limitations: No Limitations General Appearance: Alert, In No Apparent Distress - Head Head Exam: Normal Inspection, Atraumatic - Eyes Eye exam: Normal Appearance, PERRL, EOMI - ENT ENT Exam: Normal Exam External Ear Exam: Normal External Inspection TM/Canal Exam: Bilateral Normal Nose Exam: Normal Nose Exam, Nasal Deviation Mouth Exam: Normal Inspection Throat Exam: Normal Inspection - Neck Neck Exam: Normal Inspection - Chest Chest Inspection: Normal Inspection - Respiratory Respiratory Exam: Normal Lung Sounds Bilat Respiratory Exam: Bilateral Clear to Auscultation - Cardiovascular Cardiovascular Exam: Regular Rate, Normal Rhythm - Abdominal Exam Abdominal Exam: Normal Inspection, Normal Bowel Sounds Abdominal Tenderness: negative: RUQ, RLQ, LUQ, LLQ, Epigastrium, Suprapubic, Diffuse, Mild, Moderate, Severe, Other - Extremities Extremities Exam: Normal Inspection, Full ROM - Back Back Exam: Normal Inspection, Full ROM - Neurologic Neurological Exam: Alert, Oriented X3, CN II-XII Intact - Psychiatric Psychiatric Exam: Normal Affect, Normal Mood - Skin Skin Exam: Warm, Dry, Normal Color Course - Reevaluation 1st: Unchanged ROR - Labs Reviewed Laboratory Results Reviewed?: Yes (alcohol 273mg/dl) Result Diagrams: 03/05/17 00:30 03/05/17 00:30 Laboratory: WBC 9.3 X10^3/uL (3.6-10.0) 03/05/17 00:30 RBC 4.79 X10^6/uL (4.7-6.0) 03/05/17 00:30 Hgb 15.6 g/dL (13.5-18.0) 03/05/17 00:30 Hct 44.9 % (42.0-54.0) 03/05/17 00:30 MCV 93.7 fL (80.0-100.0) 03/05/17 00:30 MCH 32.6 pg (27.0-34.0) 03/05/17 00:30 MCHC 34.8 g/dL (33.0-35.0) 03/05/17 00:30 RDW 13.6 % (11.6-16.5) 03/05/17 00:30 Plt Count 243 X10^3/uL (150.0-450.0) 03/05/17 00:30 MPV 8.3 fL (7.4-11.0) 03/05/17 00:30 Neut % 57.4 % (42.0-75.0) 03/05/17 00:30 Lymph % 32.9 % (21.0-51.0) 03/05/17 00:30 [place] % 6.0 % (0.0-13.0) 03/05/17 00:30 Eos % 2.9 % (0.9-2.9) 03/05/17 00:30 Baso % 0.8 % (0.2-1.0) 03/05/17 00:30 Neut # 5.3 x10^3/uL (2.2-4.8) H 03/05/17 00:30 Lymph # 3.0 X10^3/uL (1.3-2.9) H 03/05/17 00:30 [place] # 0.6 x10^3/uL (0.3-0.8) 03/05/17 00:30 Eos # 0.3 x10^3/uL (0.0-0.2) H 03/05/17 00:30 Baso # 0.1 X10^3/uL (0.0-0.1) 03/05/17 00:30 Absolute Nucleated RBC 0.1 /100WBC 03/05/17 00:30 Sodium 141 mmol/L (136-145) 03/05/17 00:30 Corrected Sodium TNP 03/05/17 00:30 Potassium 4.0 mmol/L (3.5-5.1) 03/05/17 00:30 Chloride 106 mmol/L (98-107) 03/05/17 00:30 Carbon Dioxide 23.0 mmol/L (21-32) 03/05/17 00:30 BUN 16 mg/dL (7-18) 03/05/17 00:30 Creatinine 1.20 mg/dL (0.70-1.30) 03/05/17 00:30 Est GFR (MDRD) Af Amer > 60 (>60) 03/05/17 00:30 Est GFR (MDRD) Non-Af > 60 (>60) 03/05/17 00:30 Glucose 91 mg/dL (65-99) 03/05/17 00:30 Calcium 8.1 mg/dL (8.5-10.1) L 03/05/17 00:30 Corrected Calcium TNP 03/05/17 00:30 Total Bilirubin 0.40 mg/dL (0.2-1.0) 03/05/17 00:30 AST 14 Units/L (15-37) L 03/05/17 00:30 ALT 24 Units/L (12-78) 03/05/17 00:30 Alkaline Phosphatase 80 Units/L (46-116) 03/05/17 00:30 Total Protein 8.1 g/dL (6.4-8.2) 03/05/17 00:30 Albumin 4.1 g/dL (3.4-5.0) 03/05/17 00:30 Globulin 4.0 g/dL (2.5-4.5) 03/05/17 00:30 Albumin/Globulin Ratio 1.0 Ratio (1.1-2.1) L 03/05/17 00:30 Salicylates 4.7 mg/dL (2.8-20) 03/05/17 00:30 Acetaminophen 0.0 ug/mL (10-30) L 03/05/17 00:30 Ethyl Alcohol mg/dL 273 mg/dL (0-19.9) H 03/05/17 00:30 - EKG Rate: 87 [place]: Normal - Diagnosis Discharge Problem: non homocidal-non suicidal Alcohol intoxication Qualifiers: Complication of substance-induced condition: uncomplicated Qualified Code(s): F10.920 - Alcohol use, unspecified with intoxication, uncomplicated - Discharge Plan Condition: Stable - Follow ups/Referrals Follow ups/Referrals: NFD,None [Primary Care Provider] - 3 days - Instructions
== END 2017-03-05 01:25 | disposition left against medical advice (07) ==
LOC: ER 00:06
DX: F10.920 Alcohol use, unspecified with intoxication, uncomplicated (principal)
CPT/HCPCS: 36415; 71010; 80053; 80307; 80320; 85025; 93005; 93010; 99283; 99285; G6038; G6039; G6040

== ENCOUNTER 2017-03-29 14:23 | Emergency (ER) | payer OTHER ==
[2017-03-29 14:27] VITALS: BP 180/115; BMI 35.6
--- NOTE | 2017-03-29 14:30 | DR.GENAD ---
HPI - PCP Primary Care Physician: NFD - Complaint/Symptoms Chief Complaint:: PATIENT IS HAVING LEFT KIDNEY PAIN. - Source History Provided: Patient - Mode of Arrival Mode of Arrival: Ambulatory - Timing Onset of Chief Complaint: 03/24/17 PMH - PMH Past Medical History: Yes Past Medical History: Anxiety, COPD, Depression, Hypertension, [place] Past Surgical History: Yes Surgical History: Ortho Surgery - Family History History of Family Medical Conditions: Yes Family Medical History: Cancer, [place], Coronary Artery Disease - Social History Does patient currently use any type of tobacco product: Yes Have you used tobacco products in the last 12 months: Yes Type of Tobacco Use: Cigarettes Does any household member use tobacco: No Alcohol Use: Occasionally Do you use any recreational Drugs:: No Lives With: Family Lives Where: Home - infectious screening In the last 2 months have you had wt loss of >10#?: NO Have you had fever, night sweats or hemotysis?: No Have you traveled outside the country in the last 6 months?: No Isolation: Standard PE - Vital Signs Vitals: Temperature 98.6 F Pulse Rate 88 Respiratory Rate 20 Blood Pressure 180/115 O2 Sat by Pulse Oximetry 98 - Discharge Plan Disposition: LWBS After Triage Condition: Stable - Follow ups/Referrals Follow ups/Referrals: NFD,None [Primary Care Provider] - 3 days - Instructions
== END 2017-03-29 15:33 | disposition left against medical advice (07) ==
LOC: ER 14:49
DX: N23 Unspecified renal colic (principal)
CPT/HCPCS: 99281

== ENCOUNTER → 2017-10-11 | Outpatient (CLI) | payer OTHER ==
[2017-10-11 11:09] LABS: BASOPHILS # (AUTO) 0.1 X10^3/uL (0.0-0.1); BASOPHILS % (AUTO) 0.8 % (0.2-1.0); EOSINOPHILS # (AUTO) 0.3 x10^3/uL (0.0-0.2); HEMATOCRIT 43.3 % (42.0-54.0); HEMOGLOBIN 14.8 g/dL (13.5-18.0); LYMPHOCYTES % (AUTO) 31.9 % (21.0-51.0); MEAN CORPUSCULAR HGB CONC 34.1 g/dL (33.0-35.0); MEAN CORPUSCULAR VOLUME 93.9 fL (80.0-100.0); MEAN PLATELET VOLUME 7.9 fL (7.4-11.0); MONOCYTES # (AUTO) 0.6 x10^3/uL (0.3-0.8); NEUTROPHILS # (AUTO) 3.2 x10^3/uL (2.2-4.8); NEUTROPHILS % (AUTO) 52.3 % (42.0-75.0); PLATELET COUNT 225 X10^3/uL (150.0-450.0); RED BLOOD COUNT 4.61 X10^6/uL (4.7-6.0); RED CELL DISTRIBUTION WIDTH 13.6 % (11.6-16.5); WHITE BLOOD COUNT 6.2 X10^3/uL (3.6-10.0)
[2017-10-11 11:21] LABS: ALANINE AMINOTRANSFERASE 31 Units/L (12-78); ALBUMIN 3.6 g/dL (3.4-5.0); ALKALINE PHOSPHATASE 76 Units/L (46-116); ASPARTATE AMINO TRANSFERASE 13 Units/L (15-37); BLOOD UREA NITROGEN 18 mg/dL (7-18); CALCIUM 8.8 mg/dL (8.5-10.1); CARBON DIOXIDE 26.5 mmol/L (21-32); CHLORIDE 103 mmol/L (98-107); CREATININE 1.32 mg/dL (0.70-1.30); SODIUM 138 mmol/L (136-145); TOTAL PROTEIN 7.4 g/dL (6.4-8.2); eGFR BLACK RACES > 60 (>60); eGFR NON BLACK RACES > 60 (>60)
[2017-10-11 11:45] LABS: ERYTHROCYTE SEDIMENTATION RATE 5 MM/HOUR (0-15)
== END ==
LOC: LAB 10:39
PROVIDERS: ATTEND Nurse Practitioner Family
DX: I10 Essential (primary) hypertension (principal); M79.1 Myalgia
CPT/HCPCS: 36415; 80053; 85025; 85652; 86140